=== PATIENT | female | born 1940 | race Caucasian/White ===

== ENCOUNTER 2016-09-14 13:14 | Inpatient (IN) | payer MEDICARE, OTHER ==
[~2016-09-14] VITALS: Ht 142.2 cm; Wt 56.7 kg
[~2016-09-14 13:14] MED LIST: ACET500C5 PO; CAPT100T2 PO; FOLI-49 PO; IBUP-1542 PO; LEVO75TA5 PO; MECL25TA2 PO; METH2.5T33 PO; PRED20TA PO; TRAM50TA2 PO
[2016-09-14] MEDS ORDERED: SOD CHLORIDE 0.9% 1,000 ML IV STA (17:25)
[2016-09-14] MEDS ORDERED: ONDANSETRON 4 MG INJ IV STA (17:25)
[2016-09-14] MEDS ORDERED: DIAZEPAM 5 MG/ML SYG IV ONE (17:30)
[2016-09-14] MEDS ORDERED: MECLIZINE 12.5 MG TAB PO ONE (17:30)
--- NOTE | 2016-09-14 17:32 | ERA ---
ER Documentation Chief Complaint Date/Time DATE: 09/14/16 TIME: 17:28 Chief Complaint DIZZINESS WITH SYNCOPAL EPISODE HPI Patient is a 75-year-old female who reports dizziness for the last 2 weeks but worsening over the last 24 hours. On the chief complaint and states that she had a syncopal episode but she and her daughter deny this. She does state that her dizziness was so severe that she was crawling around on the ground last night. She did not pass out however. She states that the dizziness is a spinning sensation and that she has had this multiple times in the past. She does have a headache with a bitemporal throbbing sensation. She denies any focal weakness or paresthesias. She has not had any head trauma, chest pain, shortness of breath, fever,, coughing, sore throat, otalgia, tinnitus, abdominal pain, nausea, vomiting, diarrhea, dysuria, hematuria. Attempting to ambulate and stand increases the dizziness. Lying down helps. This is similar to prior episodes. The daughter mentions that she has had significant weight loss unintentionally over the last 8 months. She has been seeing a neurologist as well but this is been more for her forgetfulness. When asked about the weight loss she has been forgetting to eat. Remainder of the systems are negative. ROS All systems reviewed and are negative except as per history of present illness. Medications Home Meds Reported Medications Captopril* (Captopril*) 100 Mg Tablet, 100 MG PO BID, TAB 03/22/15 Methotrexate Sodium (Methotrexate) 2.5 Mg Tablet, MG PO DAILY (20MG)-8 TABS PER WEEK 03/19/12 Levothyroxine Sodium* (Levothyroxine Sodium*) 75 Mcg Tablet, 75 MCG PO DAILY 03/19/12 Folic Acid* (Folic Acid*) 1 Mg Tablet, 1 MG PO DAILY 03/19/12 Discontinued Scripts Tramadol HCl (Tramadol HCl) 50 Mg Tablet, 50 MG PO Q4 Y for PAIN, #20 TAB Prov:TOÑO KASPER MD 03/29/16 Acetaminophen* (Tylophen*) 500 Mg Capsule, 1 CAP PO Q6H Y for PAIN AND OR ELEVATED TEMP, #20 CAP Prov:TOÑO KASPER MD 03/29/16 Tramadol HCl (Tramadol HCl) 50 Mg Tablet, 50 MG PO Q4 Y for PAIN, #20 TAB Prov:TOÑO KASPER MD 01/28/16 Prednisone* (Prednisone*) 20 Mg Tab, 20 MG PO DAILY for 5 Days, TAB Prov:TOÑO KASPER MD 01/28/16 Meclizine Hcl* (Antivert*) 25 Mg Tablet, 25 MG PO Q6H Y for DIZZINESS, #20 TAB Prov:YOANA MARAVILLA DO 01/14/16 Ibuprofen* (Ibuprofen*) 600 Mg Tablet, 600 MG PO Q6 Y for PAIN, #30 TAB Prov:KAITLYNN NIETO PA-C 01/31/15 Allergies Allergies: Coded Allergies: No Known Allergy (Unverified , 09/14/16) PMhx/Soc History of Surgery: Yes () Anesthesia Reaction: No Hx Neurological Disorder: No Hx Respiratory Disorders: No Hx Cardiac Disorders: Yes (HTN) Hx Psychiatric Problems: No Hx Miscellaneous Medical Probl: Yes (ARTHRITIS) Hx Alcohol Use: No Hx Substance Use: No Hx Tobacco Use: No FmHx Family History: No coronary disease, No diabetes Physical Exam Vitals Vital Signs Date Time Temp Pulse Resp B/P Pulse Ox O2 Delivery O2 Flow Rate FiO2 09/14/16 19:11 99.0 71 17 122/69 100 Room Air 09/14/16 18:11 74 17 123/75 100 Room Air 132/79 128/64 09/14/16 18:07 Nasal Cannula 2 09/14/16 13:16 99.1 81 18 176/75 99 Physical Exam Const: [] Well-developed well-nourished female lying on the bed no acute distress Head: Atraumatic normocephalic Eyes: Normal Conjunctiva, pupils equally round and reactive to light, extraocular motions are intact ENT: Normal External Ears, Nose and Mouth., TMs are clear bilaterally Neck: Full range of motion..~ No meningismus. Resp: Clear to auscultation bilaterally Cardio: Regular rate and rhythm, no murmurs Abd: Soft, non tender, non distended. Normal bowel sounds, no masses, rebound , or guarding Skin: No petechiae or rashes Back: No midline or flank tenderness Ext: No cyanosis, or edema Neur: Awake and alert, GCS of 15, cranial nerves II through XII are intact, strength is 4 out of 5 in both upper and lower extremities, sensation is intact and equal on both sides, finger to nose is intact and equal on both sides, patient is grossly nonfocal Psych: Normal Mood and Affect Result Diagram: 09/14/16173809/14/16 1739 Results 24 hrs Laboratory Tests Test 09/14/16 17:39 09/14/16 18:46 Activated Partial Thromboplast Time 28.0Sec Alanine Aminotransferase (ALT/SGPT) 21IU/L Albumin 3.8g/dl Albumin/Globulin Ratio 1.05 Alkaline Phosphatase 132IU/L Anion Gap 16 Aspartate Amino Transf (AST/SGOT) 35IU/L Basophils # 0.110^3/ul Basophils % 0.8% Blood Urea Nitrogen 12mg/dl Calcium Level 9.2mg/dl Carbon Dioxide Level 31mmol/L Chloride Level 102mmol/L Creatinine 0.62mg/dl Direct Bilirubin 0.00mg/dl Eosinophils # 0.410^3/ul Eosinophils % 5.6% Globulin 3.60g/dl Glucose Level 106mg/dl Hematocrit 37.0% Hemoglobin 12.2g/dl INR International Normalized Ratio 1.00 Indirect Bilirubin 0.2mg/dl Lymphocytes # 1.910^3/ul Lymphocytes % 29.2% Mean Corpuscular Hemoglobin 29.6pg Mean Corpuscular Hemoglobin Concent 33.0g/dl Mean Corpuscular Volume 89.8fl Mean Platelet Volume 10.8fl Monocytes # 0.510^3/ul Monocytes % 8.0% Neutrophils # 3.810^3/ul Neutrophils % 56.2% Nucleated Red Blood Cells # 0.010^3/ul Nucleated Red Blood Cells % 0.0/100WBC Platelet Count 64459^3/UL Potassium Level 3.8mmol/L Prothrombin Time 13.2Sec Prothrombin Time Ratio 1.0 Red Blood Count 4.1210^6/ul Red Cell Distribution Width 13.4% Sodium Level 145mmol/L Total Bilirubin 0.2mg/dl Total Protein 7.4g/dl Troponin I < 0.012ng/ml White Blood Count 6.710^3/ul Urine Bacteria FEW Urine Bilirubin NEGATIVE Urine Clarity CLEAR Urine Color LT. YELLOW Urine Glucose NEGATIVE% Urine Hemoglobin 2+ Urine Ketones NEGATIVE Urine Leukocyte Esterase TRACE Urine Microscopic RBC 10-25/HPF Urine Microscopic WBC 5-10/HPF Urine Nitrite NEGATIVE Urine Specific [place] 1.015 Urine Squamous Epithelial Cells MODERATE Urine Total Protein NEGATIVE Urine Urobilinogen 0.2 E.U./dL Urine pH 5.5 Current Medications Medications (Trade) Dose Ordered Sig/Abby Route PRN Reason Start Time Stop Time Status Last Admin Dose Admin Sodium Chloride (NS) 1,000 ml @ 1,000 mls/hr Q1H STAT IV 09/14/16 17:25 09/14/16 18:24 DC 09/14/16 17:52 Ondansetron HCl (Zofran Inj) 4 mg ONCE STAT IV 09/14/16 17:25 09/14/16 17:29 DC 09/14/16 17:52 Meclizine HCl (Antivert) 25 mg ONCE ONCE PO 09/14/16 17:30 09/14/16 17:31 DC 09/14/16 17:52 Diazepam 2.5 mg 2.5 mg ONCE ONCE IV 09/14/16 17:30 09/14/16 17:31 DC 09/14/16 17:52 Ceftriaxone Sodium (Rocephin) 50 ml @ 100 mls/hr ONCE ONCE IVPB 09/14/16 20:00 09/14/16 20:29 DC 09/14/16 19:54 Procedures/MDM Differential includes but is not limited to vertigo, dizziness of unclear etiology, orthostatic hypotension, dehydration, electrolyte disturbance, anemia EKG: Rate/Rhythm: Normal Sinus Rhythm at 80 bpm with no evidence of acute ischemia noted, no old EKG available for comparison QRS, ST, T-waves: No changes consistent w/ acute ischemia Impression: No evidence of ischemia or arrhythmia Chest x-ray does not reveal any acute cardiopulmonary process CT the head does not reveal any acute intracranial abnormality Patient does not tilt on her orthostatics Patient's urine is consistent with a very minor urinary tract infection. Asked the nursing staff to get her up and see if she can ambulate. Unfortunately the patient had great difficulty even standing up out of the bed. She could ambulate only with significant assistance. According to the daughter this is not her baseline. It appears she will need to be admitted to the hospital at this time for her inability to walk. Departure Diagnosis: Primary Impression: Vertigo Additional Impressions: Difficulty in walking Urinary tract infection Dementia Condition: Good SANA OLSON Sep 14, 2016 17:32 SANA OLSON 19, 2017 17:32
[2016-09-14 17:48] LABS: ADD SCAN DIFF NO
[2016-09-14 17:54] LABS: BASOPHIL # 0.1 10^3/ul (0.0-0.1); BASOPHILS % 0.8 % (0.0-2.0); EOSINOPHILS # 0.4 10^3/ul (0.0-0.5); EOSINOPHILS % 5.6 % (0.0-7.0); HEMOGLOBIN 12.2 g/dl (12.0-16.0); LYMPHOCYTES # 1.9 10^3/ul (0.8-2.9); LYMPHOCYTES % 29.2 % (15.0-51.0); MEAN CORPUSCULAR HEMOGLOBIN 29.6 pg (29.0-33.0); MEAN CORPUSCULAR VOLUME 89.8 fl (82.0-101.0); MEAN PLATELET VOLUME 10.8 fl (7.4-10.4); MONOCYTE # 0.5 10^3/ul (0.3-0.9); NEUTROPHIL # 3.8 10^3/ul (1.6-7.5); NEUTROPHILS % 56.2 % (39.0-77.0); PLATELET COUNT 237 10^3/UL (140-415); RED BLOOD COUNT 4.12 10^6/ul (4.20-5.40); RED CELL DISTRIBUTION WIDTH 13.4 % (11.5-14.5); WHITE BLOOD COUNT 6.7 10^3/ul (4.8-10.8)
[2016-09-14 18:09] LABS: ALBUMIN 3.8 g/dl (3.3-4.9); PROTIME 13.2 Sec (12.2-14.2)
[2016-09-14 18:10] LABS: CHLORIDE 102 mmol/L (97-110); POTASSIUM 3.8 mmol/L (3.5-5.1); SODIUM 145 mmol/L (135-144)
[2016-09-14 18:12] LABS: ALBUMIN/GLOBULIN RATIO 1.05; ANION GAP 16 (8-16); ASPARTATE AMINO TRANSFERASE 35 IU/L (15-46); BILIRUBIN,INDIRECT 0.2 mg/dl (0-1.1); BILIRUBIN,TOTAL 0.2 mg/dl (0.2-1.3); BLOOD UREA NITROGEN 12 mg/dl (7-20); CARBON DIOXIDE 31 mmol/L (21-31); CREATININE 0.62 mg/dl (0.44-1.00); TOTAL PROTEIN 7.4 g/dl (6.1-8.1)
[2016-09-14 18:13] LABS: ALANINE AMINOTRANSFERASE 21 IU/L (13-69); ALKALINE PHOSPHATASE 132 IU/L (42-121); CALCIUM 9.2 mg/dl (8.4-10.2); GLUCOSE 106 mg/dl (70-220)
--- NOTE | 2016-09-14 18:23 | RADRPT ---
PROCEDURE: XR Chest. CLINICAL INDICATION: Chest pain. TECHNIQUE: Portable AP upright view of the chest was obtained. COMPARISON: 03/19/2012 FINDINGS: The cardiomediastinal silhouette is within normal limits and unchanged, pericardial fat adjacent to the left apex is again noted. The lungs are clear. There is no evidence for pleural effusion, pneu mothorax or pulmonary vascular congestion. The osseous structures are intact with no evidence for a cute abnormality. RPTAT:HJJR IMPRESSION: No evidence for acute intrathoracic pathology or change from 03/19/2012. Physician Mike Date Time Electronically viewed and signed by Physician Mike on 09/14/2016 18:22 JR/
[2016-09-14 18:29] LABS: TROPONIN-I < 0.012 ng/ml (0.00-0.12)
--- NOTE | 2016-09-14 18:30 | RADRPT ---
PROCEDURE: CT Brain without contrast. CLINICAL INDICATION: dizzy TECHNIQUE: A CT of the brain was performed on a [employer] 64-slice CT scanner utilizing axial imaging from the skull base through the vertex without IV contrast. Multiplanar reformatted images were made. Images were reviewed on a PACS workstation. The CTDIvol is 44.7 mGy and the DLP is 720 mGycm. COMPARISON: January 14, 2016 FINDINGS: There is no intracranial hemorrhage, mass effect, or midline shift. No extra-axial fluid collection is seen. There is cerebral volume loss with prominence of the cerebral sulci and lateral ventricles . Mild periventricular white matter hypodensities are nonspecific but likely reflect chronic microva scular ischemic change. Roa-white matter differentiation is preserved. The visualized paranasal si nuses and osseous structures are grossly unremarkable. IMPRESSION: 1. No evidence of acute intracranial pathology. 2. Stable mild cerebral volume loss. 3. Mild periventricular white matter hypodensities are nonspecific but likely reflect chronic micro vascular ischemic change. Physician Mena Date Time Electronically viewed and signed by Physician Mena on 09/14/2016 18:30 ML/
[2016-09-14 19:01] LABS: ADD UMIC YES; URINE BILIRUBIN (Dip) NEGATIVE (NEGATIVE); URINE BLOOD (Dip) 2+ (NEGATIVE); URINE COLOR LT. YELLOW (YELLOW); URINE GLUCOSE (Dip) NEGATIVE (NEGATIVE); URINE KETONES (Dip) NEGATIVE (NEGATIVE); URINE LEUKOCYTE ESTERASE (Dip) TRACE (NEGATIVE); URINE NITRITE (Dip) NEGATIVE (NEGATIVE); URINE TOTAL PROTEIN (Dip) NEGATIVE (NEGATIVE); URINE UROBILINOGEN (Dip) 0.2 E.U./dL (0.1-1.0)
[2016-09-14 19:20] LABS: BACTERIA,URINE FEW
[2016-09-14 19:21] LABS: SQUAMOUS EPITHELIAL CELL,UR MODERATE
[2016-09-14] MEDS ORDERED: CEFTRIAXONE 1 GM/50 ML (PMX) 50 ML IVPB ONE (20:00)
[2016-09-14] MEDS ORDERED: ONDANSETRON 4 MG INJ IV PRN ×2 (21:00→22:30)
[2016-09-14] MEDS ORDERED: ACETAMINOPHEN 325 MG TAB PO PRN ×2 (21:00→22:30)
[2016-09-14 21:30] VITALS: TEMP 98.9
[2016-09-14 22:00] VITALS: Ht 142.2 cm; Wt 56.7 kg
[2016-09-14] MEDS ORDERED: morphine 2 MG INJ IV PRN (22:30)
[2016-09-14] MEDS ORDERED: NA PHOSPHATE/BIPHOS 133 ML ENEMA PR PRN (22:30)
[2016-09-14] MEDS ORDERED: MAGNESIUM HYDROXIDE 30ML CUP PO PRN (22:30)
[2016-09-14] MEDS ORDERED: NITROGLYCERIN (SL) 0.4 MG TAB SL PRN (22:30)
[2016-09-14] MEDS ORDERED: hydrALAzine 20 MG INJ IV PRN (22:30)
[2016-09-14] MEDS ORDERED: ALBUTEROL/IPRATROPIUM (NEB) 3 ML AMP HHN PRN (22:30)
[2016-09-14] MEDS ORDERED: LORAZEPAM 2 MG INJ IV PRN (22:30)
[2016-09-14] MEDS ORDERED: NACL 0.9% 3 ML SYG IV SCH (22:30)
[2016-09-14] MEDS ORDERED: DOCUSATE SODIUM 100 MG CAP PO PRN (22:30)
[2016-09-14 23:00] VITALS: BP 121/54; RESP 16
[2016-09-14] MEDS: SOD CHLORIDE 0.45% 1,000 ML IV SCH (23:10)
[2016-09-14] MEDS: HYDROCODONE/APAP (5/325) TAB PO PRN (23:13)
[2016-09-14 23:54] LABS: CREATINE KINASE 73 IU/L (23-200)
[2016-09-15 00:04] LABS: CK-MB 1.05 ng/ml (0.0-2.4)
[2016-09-15 00:10] LABS: TROPONIN-I < 0.012 ng/ml (0.00-0.12)
--- NOTE | 2016-09-15 04:33 | HP ---
DATE OF ADMISSION: 09/14/2016 The patient was seen and examined by me on 09/14/2016 at 10:10 p.m. CHIEF COMPLAINT: Headache and dizziness. HISTORY OF PRESENT ILLNESS: This is a 75-year-old female with past medical history of vertigo, ques tionable Alzheimer disease, arthritis, and hypothyroidism who has been having dizziness symptoms goi ng on for the last few days and worsening over the last 24 hours. Per records, apparently her dizzi ness was so severe that she was crawling around on the ground last night but no loss of consciousnes s. She has had a spinning sensation of vertigo in the past and has taken meclizine in the past, but apparently she also was having headache, bitemporal throbbing sensation this time, and her symptoms were worse than before. No chest pain or shortness of breath. No sore throat or coughing. No abd ominal pain, nausea, or vomiting. No dysuria. No upper or lower GI bleeding. No hematuria. The p atient's dizziness gets worse when she stands and gets improved when she lies down. She also parado xically states that she has been having about 25 to 30 pound weight loss over the last 8 months with some mild night sweats. This has been unintentional as well. She has seen a neurologist at least over a year ago, and was initially prescribed some medicines for Alzheimer disease over a year ago b ut has not been taking them, per family. PAST MEDICAL HISTORY: As stated above. ALLERGIES: NO KNOWN DRUG ALLERGIES. MEDICATIONS: 1. Methotrexate 2.5 mg daily. 2. Captopril 100 mg b.i.d. 3. Levothyroxine 75 mg daily. 4. Folic acid 1 mg daily. PAST SURGICAL HISTORY: She has had a in the past. SOCIAL HISTORY: Negative for smoking, drinking, or IV drug abuse. FAMILY HISTORY: Noncontributory. PHYSICAL EXAMINATION: VITAL SIGNS: Today, T-max 99.1, pulse 71 to 81, respirations 18, blood pressure is 176 to 122 systo lic over 75 to 69 diastolic, saturating at 100% on room air. GENERAL: The patient is lying in bed. Daughter is at bedside. Answering questions appropriately. No acute distress. HEENT: Pupils equal, round, react to light. Extraocular muscles intact. NECK: Supple, no thyromegaly. LUNGS: Clear to auscultation bilaterally. CARDIOVASCULAR: S1, S2 heard. No rubs or gallops. ABDOMEN: Soft, nontender, nondistended. Normal bowel sounds. No rebound or guarding. MUSCULOSKELETAL: No lower extremity edema bilaterally. NEUROLOGIC: She has about 4/5 strength both bilateral upper and bilateral lower extremities, but se nsation is intact bilaterally in upper and lower extremities. Gait was not assessed. LABORATORIES: CBC is normal. Comprehensive metabolic panel is essentially normal. Sodium is 145. Troponin is negative x1. Coags are normal. The UA shows trace leukocyte esterase positive. The p atient had a head CT that shows no evidence of any acute intracranial pathology. There is stable mi ld cerebral volume loss. Mild periventricular white matter hypodensities are nonspecific and likely reflect chronic microvascular ischemic changes. A chest x-ray shows no evidence of any acute intra thoracic pathology. ASSESSMENT AND PLAN: A 75-year-old female coming in with headache and dizziness symptoms, possible signs of worsening vertigo, with mild urinary tract infection. 1. Dizziness symptoms. We will admit the patient and consider starting meclizine. Check TSH, A1c, lipid panel, and put her on IV fluids as well. Consider neurology consult. Do neuro checks as wel l. Echocardiogram has been ordered as well. Consider MRI of the brain. We will speak to neurology team first. 2. History of arthritis. Continue to monitor for now. She is on p.r.n. pain medicines. 3. History of hypothyroidism. Continue Synthroid. Monitor TSH levels. 4. Weight loss. Again, unclear source. We will order for tumor markers CA 19-9, CA-125, CEA, and alpha fetoprotein to rule out any possible malignancy. 5. Gastrointestinal prophylaxis. We will put her on PPI. 6. Deep venous thrombosis prophylaxis. She will be on SCDs. Dictated By: JAYNE DE SANTIAGO Conf#: [id number] DID#: [id number]
[2016-09-15] MEDS ORDERED: PANTOPRAZOLE 40 MG INJ IV SCH (06:00)
[2016-09-15] MEDS: HYDROCODONE/APAP (5/325) TAB PO PRN (06:18)
[2016-09-15 06:22] VITALS: BP 135/62; PULSE 63
[2016-09-15 06:31] LABS: ADD SCAN DIFF NO
[2016-09-15 06:47] LABS: POTASSIUM 3.6 mmol/L (3.5-5.1)
[2016-09-15 06:49] LABS: CREATINE KINASE 105 IU/L (23-200)
[2016-09-15 06:50] LABS: CREATININE 0.6 mg/dl (0.44-1.00)
[2016-09-15 06:51] LABS: CALCIUM 8.3 mg/dl (8.4-10.2); CHOL/HDL RATIO 2.6 RATIO; PHOSPHORUS 3.7 mg/dl (2.5-4.9)
[2016-09-15 06:52] LABS: BASOPHIL # 0.1 10^3/ul (0.0-0.1); EOSINOPHILS # 0.5 10^3/ul (0.0-0.5); EOSINOPHILS % 9.9 % (0.0-7.0); HEMATOCRIT 35.7 % (37.0-47.0); HEMOGLOBIN 11.4 g/dl (12.0-16.0); LYMPHOCYTES # 1.7 10^3/ul (0.8-2.9); LYMPHOCYTES % 32.1 % (15.0-51.0); MEAN CORPUSCULAR HEMOGLOBIN 29.2 pg (29.0-33.0); MEAN CORPUSCULAR HGB CONC 31.9 g/dl (32.0-37.0); MEAN CORPUSCULAR VOLUME 91.3 fl (82.0-101.0); MEAN PLATELET VOLUME 11.4 fl (7.4-10.4); MONOCYTE # 0.4 10^3/ul (0.3-0.9); MONOCYTES % 7.4 % (0.0-11.0); NEUTROPHIL # 2.6 10^3/ul (1.6-7.5); NEUTROPHILS % 49.4 % (39.0-77.0); PLATELET COUNT 210 10^3/UL (140-415); RED BLOOD COUNT 3.91 10^6/ul (4.20-5.40); RED CELL DISTRIBUTION WIDTH 13.6 % (11.5-14.5); WHITE BLOOD COUNT 5.2 10^3/ul (4.8-10.8)
[2016-09-15 06:57] LABS: CK-MB 1.57 ng/ml (0.0-2.4)
[2016-09-15 07:15] LABS: TROPONIN-I < 0.012 ng/ml (0.00-0.12)
[2016-09-15 07:23] LABS: CANCER ANTIGEN 125 10.5 U/ml (0.0-35.0); CARCINOEMBRYONIC ANTIGEN 2.4 ng/ml (0.0-5.0)
[2016-09-15] MEDS ORDERED: LEVOTHYROXINE 75 MCG TAB PO SCH (07:30)
[2016-09-15 07:56] VITALS: BP 123/58; RESP 20
[2016-09-15] MEDS: FOLIC ACID 1 MG TAB PO SCH (09:00)
[2016-09-15 10:47] LABS: THYROID STIMULATING HORMONE 10.5 MIU/L (0.465-4.680)
[2016-09-15] MEDS: MECLIZINE 25 MG TAB PO SCH ×2 (13:00→20:47)
--- NOTE | 2016-09-15 13:11 | CONS ---
Date/Time of Note Date/Time of Note DATE: 09/15/16 TIME: 13:07 Assessment/Plan Assessment/Plan Chief Complaint/Hosp Course 75 year old female with history of vertigo presenting with headaches and worsening symptoms. -Meclizine 25 mg TID standing ordered, IVF -MRI Brain w/o contrast to r/o posterior fossa infarct -PT evaluation -will continue to follow Problems: Consultation Date/Type/Reason Admit Date/Time Sep 14, 2016 at 21:00 Date of Consultation: Sep 15, 2016 Type of Consultation: Neurology Reason for Consultation vertigo Referring Provider: JAYNE KERN Hx of Present Illness 75 year old female with history of vertigo, dementia, arthritis presenting with worsening dizziness for the past few days and difficulty ambulating due to severe vertigo. In the past she has taken meclizine, which alleviated her symptoms, no history of any strokes. She complains of blurred vision due to vertigo, no loss of vision, no speech disturbances or focal weakness. She also admits to up to 30 pounds unintentional weight loss, undergoing further work up. vertigo Social History Smoking Status: Never smoker Exam/Review of Systems Vital Signs Vitals Vital Signs Date Time Temp Pulse Resp B/P Pulse Ox O2 Delivery O2 Flow Rate FiO2 09/15/16 07:56 98.9 65 20 123/58 93 09/14/16 21:30 Room Air 09/14/16 18:07 2 Intake and Output 09/14/16 09/14/16 09/15/16 15:00 23:00 07:00 Intake Total 450 ml Output Total 1 ml Balance 449 ml Exam awake alert appears stated age oriented to self hospital bulgarian speaking no aphasia follows commands CN: JB, no nystagmus, blinks to threat no facial asymmetry palate upgoing uvula midline scm/trap intact tongue midline Motor: no drift in arms or legs strength is full throughout although she gives poor effrt Coordination no ataxia Reflexes symmetric throughout gait unable to test Results Result Diagram: 09/15/16 0540 09/15/16 0540 Results 24 hrs Laboratory Tests Test 09/14/16 17:39 09/14/16 18:46 09/14/16 23:24 09/15/16 05:40 Activated Partial Thromboplast Time 28.0 Alanine Aminotransferase (ALT/SGPT) 21 Albumin 3.8 Albumin/Globulin Ratio 1.05 Alkaline Phosphatase 132 H Anion Gap 16 13 Aspartate Amino Transf (AST/SGOT) 35 Basophils # 0.1 0.1 Basophils % 0.8 1.0 Blood Urea Nitrogen 12 10 Calcium Level 9.2 8.3 L Carbon Dioxide Level 31 28 Chloride Level 102 105 Creatinine 0.62 0.60 Direct Bilirubin 0.00 Eosinophils # 0.4 0.5 Eosinophils % 5.6 9.9 H Globulin 3.60 H Glucose Level 106 78 Hematocrit 37.0 35.7 L Hemoglobin 12.2 11.4 L INR International Normalized Ratio 1.00 Indirect Bilirubin 0.2 Lymphocytes # 1.9 1.7 Lymphocytes % 29.2 32.1 Mean Corpuscular Hemoglobin 29.6 29.2 Mean Corpuscular Hemoglobin Concent 33.0 31.9 L Mean Corpuscular Volume 89.8 91.3 Mean Platelet Volume 10.8 H 11.4 H Monocytes # 0.5 0.4 Monocytes % 8.0 7.4 Neutrophils # 3.8 2.6 Neutrophils % 56.2 49.4 Nucleated Red Blood Cells # 0.0 0.0 Nucleated Red Blood Cells % 0.0 0.0 Platelet Count 237 210 Potassium Level 3.8 3.6 Prothrombin Time 13.2 Prothrombin Time Ratio 1.0 Red Blood Count 4.12 L 3.91 L Red Cell Distribution Width 13.4 13.6 Sodium Level 145 H 142 Total Bilirubin 0.2 Total Protein 7.4 Troponin I < 0.012 < 0.012 < 0.012 White Blood Count 6.7 # 5.2 # Urine Bacteria FEW Urine Bilirubin NEGATIVE Urine Clarity CLEAR Urine Color LT. YELLOW Urine Glucose NEGATIVE Urine Hemoglobin 2+ H Urine Ketones NEGATIVE Urine Leukocyte Esterase TRACE H Urine Microscopic RBC 10-25 Urine Microscopic WBC 5-10 Urine Nitrite NEGATIVE Urine Specific [place] 1.015 Urine Squamous Epithelial Cells MODERATE Urine Total Protein NEGATIVE Urine Urobilinogen 0.2 E.U./dL Urine pH 5.5 Creatine Kinase 73 105 Creatine Kinase Index 1.4 1.5 Creatinine Kinase MB (Mass) 1.05 1.57 Free Thyroxine 1.10 Alpha Fetoprotein 3.11 CA 125 Antigen 10.5 CA 19-9 Antigen 11.0 Carcinoembryonic Antigen 2.4 Cholesterol Level 141 Cholesterol/HDL Ratio 2.6 HDL Cholesterol 53 Hemoglobin A1c 5.2 LDL Cholesterol, Calculated 68 Magnesium Level 2.0 Phosphorus Level 3.7 Thyroid Stimulating Hormone (TSH) 10.500 H Triglycerides Level 99 Medications Medications Current Medications Ondansetron HCl (Zofran Inj) 4 mg Q6H PRN IV NAUSEA AND/OR VOMITING; Start at 22:30 Acetaminophen (Tylenol Tab) 650 mg Q6H PRN PO PAIN LEVEL 1-3 OR FEVER; Start at 22:30 Acetaminophen/ Hydrocodone Bitart ([place] (5/325)) 1 tab Q6H PRN PO MODERATE PAIN LEVEL 4-6 Last administered on 09/15/16 06:18; Admin Dose 1 TAB; Start at 22:30 Morphine Sulfate (morphine) 2 mg Q4H PRN IV SEVERE PAIN LEVEL 7-10; Start 09/14 at 22:30 Docusate Sodium (Colace) 100 mg Q12H PRN PO CONSTIPATION; Start 09/14/16 at 22: 30 Magnesium Hydroxide (Milk Of Mag) 30 ml DAILY PRN PO CONSTIPATION; Start at 22:30 Sodium Biphosphate/ Sodium Phosphate 133 ml 133 ml DAILY PRN [place] CONSTIPATION; Start 09/14/16 at 22:30 Sodium Chloride (1/2 NS) 1,000 ml @ 75 mls/hr [id number] IV Last administered on 09/14/16 23:10; Admin Dose 75 MLS/HR; Start 09/14/16 at 22:09 Lorazepam (Ativan) 0.5 mg Q6H PRN IV ANXIETY; Start 09/14/16 at 22:30 Hydralazine HCl (Apresoline) 10 mg Q6H PRN IV ELEVATED BLOOD PRESSURE; Start at 22:30 Clonidine (Catapres) 0.1 mg Q6H PRN PO ELEVATED BLOOD PRESSURE; Start 09/14/16 at 22:30 Nitroglycerin (Nitroglycerin (Sl Tab) 0.4 Mg) 1 tab Q5M PRN SL ANGINA; Start at 22:30 Folic Acid (Folic Acid) 1 mg DAILY PO ; Start 09/15/16 at 09:00 Pantoprazole (Protonix Iv) 40 mg DAILY@06 IV Last administered on 09/15/16 06: 12; Admin Dose 40 MG; Start 09/15/16 at 06:00 Meclizine HCl (Antivert) 25 mg TID PO ; Start 09/15/16 at 13:00 LOUIE MARROQUIN MD Sep 15, 2016 13:11
[2016-09-15] MEDS: SOD CHLORIDE 0.45% 1,000 ML IV SCH (14:18)
--- NOTE | 2016-09-15 14:19 | PN ---
Date/Time of Note Date/Time of Note DATE: 09/15/16 TIME: 14:13 Assessment/Plan VTE Prophylaxis VTE Prophylaxis Intervention: heparin Lines/Catheters IV Catheter Type (from Nrs): Saline Lock Urinary Cath still in place: No Assessment/Plan Assessment/Plan 1. Vertigo, acute on chronic, meclizine 2. UTI, on rocephin 3. Hypothyroidism with TSH 10, increase synthroid DVT prophylaxis: heparin Subjective 24 Hr Interval Summary Free Text/Dictation less vertigo but still dizzy on standing or sitting Exam/Review of Systems Vital Signs Vitals Vital Signs Date Time Temp Pulse Resp B/P Pulse Ox O2 Delivery O2 Flow Rate FiO2 09/15/16 07:56 98.9 65 20 123/58 93 09/14/16 21:30 Room Air 09/14/16 18:07 2 Intake and Output 09/14/16 09/14/16 09/15/16 15:00 23:00 07:00 Intake Total 450 ml Output Total 1 ml Balance 449 ml Exam Constitutional: alert, oriented, well developed Psych: nl mood/affect, no complaints Head: atraumatic, normocephalic Eyes: EOMI, PERRL, nl conjunctiva, nl lids ENMT: nl external ears & nose, nl lips & teeth, nl nasal mucosa & septum Neck: non-tender, supple Respiratory: clear to auscultation, normal air movement, No congested cough, No crackles/rales, No diminished breath sounds, No intercostal retraction, No labored breathing, No other, No respirations, No tactile fremitus, No wheezing Cardiovascular: nl pulses, regular rate and rhythm, No S3, No S4, No bruits, No diastolic murmur, No edema, No gallop, No irregular rhythm, No jugular venous distention (JVD), No murmurs/extra sounds, No other, No rub, No systolic murmur Gastrointestinal: nl liver, spleen, non-tender, soft, No ascites, No bowel sounds, No distended, No firm, No hepatomegaly, No mass , No other, No rebound or guarding, No splenomegaly, No surgical scars, No tender Musculoskeletal: nl extremities to inspection Extremities: normal pulses, No calf tenderness, No clubbing, No cyanosis, No edema, No other, No palpable cord, No pitting pedal edema, No tenderness Neurological: CONFERENCE ASSISTANT II-XII intact, nl mental status, nl speech, nl strength Skin: nl turgor Lymph: nl lymph nodes Results Result Diagram: 09/15/16 0540 09/15/16 0540 Results 24 hrs Laboratory Tests Test 09/14/16 17:39 09/14/16 18:46 09/14/16 23:24 09/15/16 05:40 Activated Partial Thromboplast Time 28.0 Alanine Aminotransferase (ALT/SGPT) 21 Albumin 3.8 Albumin/Globulin Ratio 1.05 Alkaline Phosphatase 132 H Anion Gap 16 13 Aspartate Amino Transf (AST/SGOT) 35 Basophils # 0.1 0.1 Basophils % 0.8 1.0 Blood Urea Nitrogen 12 10 Calcium Level 9.2 8.3 L Carbon Dioxide Level 31 28 Chloride Level 102 105 Creatinine 0.62 0.60 Direct Bilirubin 0.00 Eosinophils # 0.4 0.5 Eosinophils % 5.6 9.9 H Globulin 3.60 H Glucose Level 106 78 Hematocrit 37.0 35.7 L Hemoglobin 12.2 11.4 L INR International Normalized Ratio 1.00 Indirect Bilirubin 0.2 Lymphocytes # 1.9 1.7 Lymphocytes % 29.2 32.1 Mean Corpuscular Hemoglobin 29.6 29.2 Mean Corpuscular Hemoglobin Concent 33.0 31.9 L Mean Corpuscular Volume 89.8 91.3 Mean Platelet Volume 10.8 H 11.4 H Monocytes # 0.5 0.4 Monocytes % 8.0 7.4 Neutrophils # 3.8 2.6 Neutrophils % 56.2 49.4 Nucleated Red Blood Cells # 0.0 0.0 Nucleated Red Blood Cells % 0.0 0.0 Platelet Count 237 210 Potassium Level 3.8 3.6 Prothrombin Time 13.2 Prothrombin Time Ratio 1.0 Red Blood Count 4.12 L 3.91 L Red Cell Distribution Width 13.4 13.6 Sodium Level 145 H 142 Total Bilirubin 0.2 Total Protein 7.4 Troponin I < 0.012 < 0.012 < 0.012 White Blood Count 6.7 # 5.2 # Urine Bacteria FEW Urine Bilirubin NEGATIVE Urine Clarity CLEAR Urine Color LT. YELLOW Urine Glucose NEGATIVE Urine Hemoglobin 2+ H Urine Ketones NEGATIVE Urine Leukocyte Esterase TRACE H Urine Microscopic RBC 10-25 Urine Microscopic WBC 5-10 Urine Nitrite NEGATIVE Urine Specific Welcome 1.015 Urine Squamous Epithelial Cells MODERATE Urine Total Protein NEGATIVE Urine Urobilinogen 0.2 E.U./dL Urine pH 5.5 Creatine Kinase 73 105 Creatine Kinase Index 1.4 1.5 Creatinine Kinase MB (Mass) 1.05 1.57 Free Thyroxine 1.10 Alpha Fetoprotein 3.11 CA 125 Antigen 10.5 CA 19-9 Antigen 11.0 Carcinoembryonic Antigen 2.4 Cholesterol Level 141 Cholesterol/HDL Ratio 2.6 HDL Cholesterol 53 Hemoglobin A1c 5.2 LDL Cholesterol, Calculated 68 Magnesium Level 2.0 Phosphorus Level 3.7 Thyroid Stimulating Hormone (TSH) 10.500 H Triglycerides Level 99 Medications Medications Current Medications Ondansetron HCl (Zofran Inj) 4 mg Q6H PRN IV NAUSEA AND/OR VOMITING; Start at 22:30 Acetaminophen (Tylenol Tab) 650 mg Q6H PRN PO PAIN LEVEL 1-3 OR FEVER; Start at 22:30 Acetaminophen/ Hydrocodone Bitart ([place] (5/325)) 1 tab Q6H PRN PO MODERATE PAIN LEVEL 4-6 Last administered on 09/15/16 06:18; Admin Dose 1 TAB; Start at 22:30 Morphine Sulfate (morphine) 2 mg Q4H PRN IV SEVERE PAIN LEVEL 7-10; Start 09/14 at 22:30 Docusate Sodium (Colace) 100 mg Q12H PRN PO CONSTIPATION; Start 09/14/16 at 22: 30 Magnesium Hydroxide (Milk Of Mag) 30 ml DAILY PRN PO CONSTIPATION; Start at 22:30 Sodium Biphosphate/ Sodium Phosphate 133 ml 133 ml DAILY PRN [place] CONSTIPATION; Start 09/14/16 at 22:30 Sodium Chloride (1/2 NS) 1,000 ml @ 75 mls/hr [id number] IV Last administered on 09/14/16 23:10; Admin Dose 75 MLS/HR; Start 09/14/16 at 22:09 Lorazepam (Ativan) 0.5 mg Q6H PRN IV ANXIETY; Start 09/14/16 at 22:30 Hydralazine HCl (Apresoline) 10 mg Q6H PRN IV ELEVATED BLOOD PRESSURE; Start at 22:30 Clonidine (Catapres) 0.1 mg Q6H PRN PO ELEVATED BLOOD PRESSURE; Start 09/14/16 at 22:30 Nitroglycerin (Nitroglycerin (Sl Tab) 0.4 Mg) 1 tab Q5M PRN SL ANGINA; Start at 22:30 Folic Acid (Folic Acid) 1 mg DAILY PO ; Start 09/15/16 at 09:00 Pantoprazole (Protonix Iv) 40 mg DAILY@06 IV Last administered on 09/15/16t 06: 12; Admin Dose 40 MG; Start 09/15/16 at 06:00 Meclizine HCl (Antivert) 25 mg TID PO ; Start 09/15/16 at 13:00 AARON ALY MD Sep 15, 2016 14:19
--- NOTE | 2016-09-15 18:20 | RADRPT ---
Echocardiogram Report Patient Name: ДМИТРИЙ BELTRÁN Gender: Female Date: 1940 Study Date: 15-Sep-2016 Plant Supervisor: Concha Godfrey [facility] Location: 2249 Ref. Physician: JAYNE KERN Quality: Good Procedures: Transthoracic echocardiogram with complete 2D, M-Mode, and doppler examination. Indications: Chest Pain. 2D/M Mode Doppler Measurement Value Normal Ranges Measurement Value Normal Ranges LVIDd 2D 3.8 3.5 - 5.6 cm AV Peak Amanuel 1.4 m/sec LVIDs 2D 2.2 2.1 - 4.1 cm AV Peak PG 8.0 mmHg FS 2D 42.4 % LVOT Peak Amanuel 1.1 m/sec LVPWd 2D 0.8 0.6 - 1.1 cm LVOT Peak PG 5.0 mmHg IVSd 2D 0.9 0.6 - 1.1 cm MV E Peak Amanuel 0.8 m/sec IVS/LVPW 2D 1.1 MV A Peak Amanuel 0.9 m/sec AoR Diam 2D 2.4 2.0 - 3.7 cm MV E/A 0.8 LA/Ao 2D 1 0 - 1 MV Decel Time 183 msec EDV 2D 55.7 cm3 MV E/A 0.8 ESV 2D 10.6 cm3 TR Peak Amanuel 3.0 m/sec LA Dimen 2D 3.1 2.3 - 4.0 cm TR Peak PG 37.0 mmHg RVSP 40.0 mmHg Findings Left Ventricle: Normal left ventricular systolic function. Normal left ventricular cavity size. Normal left ventricular wall thickness. Ejection fraction is visually estimated at 60 %. Tissue Doppler/Mitral Doppler indices are consistent with impaired relaxation (Stage I diastolic dysfunction). Right Ventricle: Normal right ventricular size. Normal right ventricular systolic function. Left Atrium: The left atrium is normal in size. Right Atrium: The right atrium is normal in size. Mitral Valve: Normal appearance of the mitral valve. Mild mitral annular calcification. Mild mitral valve regurgitation. Aortic Valve: Normal appearance of the aortic valve. No significant aortic stenosis or insufficiency. Tricuspid Valve: Normal appearance of the tricuspid valve. Estimated peak PA systolic pressure 40 mmHg. There is mild tricuspid regurgitation. Pulmonic Valve: Normal pulmonic valve appearance. Pericardium: Normal pericardium with no significant pericardial effusion. Aorta: Normal aortic root. IVC: Normal size and normal respiratory collapse consistent with normal right atrial pressure. Conclusions 1.Normal left ventricular systolic function. Normal left ventricular cavity size. Normal left ventricular wall thickness. Ejection fraction is visually estimated at 60 %. Tissue Doppler/Mitral Doppler indices are consistent with impaired relaxation (Stage I diastolic dysfunction). 2.Normal appearance of the mitral valve. Mild mitral annular calcification. Mild mitral valve regurgitation. 3.Normal appearance of the tricuspid valve. Estimated peak PA systolic pressure 40 mmHg. There is mild tricuspid regurgitation. Electronically Signed By: Mina Landa 15-Sep-2016 18:19:50 -2400 Patient Name: ДМИТРИЙ BELTRÁN Study Date: 15-Sep-2016 [id number]
[2016-09-15] MEDS: HEPARIN 5,000 UNIT/0.5 ML SYG SC SCH (20:53)
[2016-09-15 21:40] VITALS: BP 146/68; RESP 18
[2016-09-15 22:15] VITALS: BP_SYST 126; BP_SYST 130; BP_DIAS 60
[2016-09-16] MEDS: SOD CHLORIDE 0.45% 1,000 ML IV SCH ×3 (00:49→20:35)
[2016-09-16 05:38] LABS: ADD SCAN DIFF NO
[2016-09-16 06:08] LABS: POTASSIUM 3.8 mmol/L (3.5-5.1)
[2016-09-16 06:11] LABS: BASOPHIL # 0.1 10^3/ul (0.0-0.1); BASOPHILS % 0.8 % (0.0-2.0); CREATININE 0.62 mg/dl (0.44-1.00); EOSINOPHILS # 0.6 10^3/ul (0.0-0.5); EOSINOPHILS % 9.2 % (0.0-7.0); HEMATOCRIT 34.5 % (37.0-47.0); HEMOGLOBIN 11.5 g/dl (12.0-16.0); LYMPHOCYTES # 1.7 10^3/ul (0.8-2.9); MEAN CORPUSCULAR HEMOGLOBIN 30.1 pg (29.0-33.0); MEAN CORPUSCULAR HGB CONC 33.3 g/dl (32.0-37.0); MEAN CORPUSCULAR VOLUME 90.3 fl (82.0-101.0); MEAN PLATELET VOLUME 11.3 fl (7.4-10.4); MONOCYTE # 0.5 10^3/ul (0.3-0.9); MONOCYTES % 8.7 % (0.0-11.0); NEUTROPHIL # 3.2 10^3/ul (1.6-7.5); NEUTROPHILS % 53.1 % (39.0-77.0); PLATELET COUNT 214 10^3/UL (140-415); RED BLOOD COUNT 3.82 10^6/ul (4.20-5.40); RED CELL DISTRIBUTION WIDTH 13.3 % (11.5-14.5)
[2016-09-16 06:12] LABS: CALCIUM 8.8 mg/dl (8.4-10.2)
[2016-09-16] MEDS: PANTOPRAZOLE (EC) 40 MG TAB PO SCH (06:19)
[2016-09-16 08:00] VITALS: BP 135/80; PULSE 73; RESP 18
[2016-09-16] MEDS: LEVOTHYROXINE 75 MCG TAB PO SCH (08:37)
[2016-09-16] MEDS: MECLIZINE 25 MG TAB PO SCH ×3 (08:37→20:26)
[2016-09-16] MEDS: FOLIC ACID 1 MG TAB PO SCH (08:37)
[2016-09-16] MEDS: HEPARIN 5,000 UNIT/0.5 ML SYG SC SCH ×2 (09:27→20:28)
--- NOTE | 2016-09-16 12:06 | CONS ---
Date/Time of Note Date/Time of Note DATE: 09/16/16 TIME: 12:05 Consult Date/Type/Reason Admit Date/Time Sep 14, 2016 at 21:00 Initial Consult Date 09/15/16 Type of Consultation: Neurology Ordering Provider: JAYNE KERN Subjective dizziness improving refused MRI last night, agreeable to MRI today with sedatives Objective Vital Signs Date Time Temp Pulse Resp B/P Pulse Ox O2 Delivery O2 Flow Rate FiO2 09/16/16 08:00 98.6 73 18 135/80 93 Room Air 09/14/16 18:07 2 Intake and Output 09/15/16 09/15/16 09/16/16 15:00 23:00 07:00 Intake Total 550 ml 665 ml 975 ml Output Total 850 ml 500 ml Balance 550 ml -185 ml 475 ml Exam awake alert appears stated age oriented to self hospital [place] speaking no aphasia follows commands CN: JB, no nystagmus, blinks to threat no facial asymmetry palate upgoing uvula midline scm/trap intact tongue midline Motor: no drift in arms or legs strength is full throughout although she gives poor effrt Coordination no ataxia Reflexes symmetric throughout gait unable to test Results/Medications Result Diagram: 09/16/16 0440 09/16/16 0440 Results 24 hrs Laboratory Tests Test 09/16/16 04:40 Anion Gap 14 Basophils # 0.1 Basophils % 0.8 Blood Urea Nitrogen 12 Calcium Level 8.8 Carbon Dioxide Level 29 Chloride Level 105 Creatinine 0.62 Eosinophils # 0.6 H Eosinophils % 9.2 H Glucose Level 87 Hematocrit 34.5 L Hemoglobin 11.5 L Lymphocytes # 1.7 Lymphocytes % 28.0 Mean Corpuscular Hemoglobin 30.1 Mean Corpuscular Hemoglobin Concent 33.3 Mean Corpuscular Volume 90.3 Mean Platelet Volume 11.3 H Monocytes # 0.5 Monocytes % 8.7 Neutrophils # 3.2 Neutrophils % 53.1 Nucleated Red Blood Cells # 0.0 Nucleated Red Blood Cells % 0.0 Platelet Count 214 Potassium Level 3.8 Red Blood Count 3.82 L Red Cell Distribution Width 13.3 Sodium Level 144 White Blood Count 6.0 Medications Current Medications Ondansetron HCl (Zofran Inj) 4 mg Q6H PRN IV NAUSEA AND/OR VOMITING; Start at 22:30 Acetaminophen (Tylenol Tab) 650 mg Q6H PRN PO PAIN LEVEL 1-3 OR FEVER; Start at 22:30 Acetaminophen/ Hydrocodone Bitart ([place] (5/325)) 1 tab Q6H PRN PO MODERATE PAIN LEVEL 4-6 Last administered on 09/15/16 06:18; Admin Dose 1 TAB; Start at 22:30 Morphine Sulfate (morphine) 2 mg Q4H PRN IV SEVERE PAIN LEVEL 7-10; Start 09/14 at 22:30 Docusate Sodium (Colace) 100 mg Q12H PRN PO CONSTIPATION; Start 09/14/16 at 22: 30 Magnesium Hydroxide (Milk Of Mag) 30 ml DAILY PRN PO CONSTIPATION; Start at 22:30 Sodium Biphosphate/ Sodium Phosphate 133 ml 133 ml DAILY PRN [place] CONSTIPATION; Start 09/14/16 at 22:30 Sodium Chloride (1/2 NS) 1,000 ml @ 75 mls/hr [id number] IV Last administered on 09/16/16 06:20; Admin Dose 75 MLS/HR; Start 09/14/16 at 22:09 Lorazepam (Ativan) 0.5 mg Q6H PRN IV ANXIETY; Start 09/14/16 at 22:30 Hydralazine HCl (Apresoline) 10 mg Q6H PRN IV ELEVATED BLOOD PRESSURE; Start at 22:30 Clonidine (Catapres) 0.1 mg Q6H PRN PO ELEVATED BLOOD PRESSURE; Start 09/14/16 at 22:30 Nitroglycerin (Nitroglycerin (Sl Tab) 0.4 Mg) 1 tab Q5M PRN SL ANGINA; Start at 22:30 Folic Acid (Folic Acid) 1 mg DAILY PO Last administered on 09/16/16 08:37; Admin Dose 1 MG; Start 09/15/16 at 09:00 Meclizine HCl (Antivert) 25 mg TID PO Last administered on 09/16/16 08:37; Admin Dose 25 MG; Start 09/15/16 at 13:00 Heparin Sodium (Porcine) (Heparin (5000 Units/0.5 ml)) 5,000 unit BID SC Last administered on 09/16/16 09:27; Admin Dose 5,000 UNIT; Start 09/15/16 at 21:00 Pantoprazole (Protonix Tab) 40 mg DAILY@06 PO Last administered on 09/16/16t 06 :19; Admin Dose 40 MG; Start 09/16/16 at 06:00 Assessment/Plan Chief Complaint/Hosp Course 75 year old female with history of vertigo presenting with headaches and worsening symptoms. -Meclizine 25 mg TID standing ordered, IVF -MRI Brain w/o contrast to r/o posterior fossa infarct may use low dose ativan 0.5 mg prn prior to MRI to complete -PT evaluation -will continue to follow Problems: LOUIE MARROQUIN MD Sep 16, 2016 12:06
[2016-09-16] MEDS ORDERED: HYDR-3498 PO (15:06)
[2016-09-16] MEDS ORDERED: SYN75 PO (15:16)
--- NOTE | 2016-09-16 15:16 | PN ---
Date/Time of Note Date/Time of Note DATE: 09/16/16 TIME: 15:14 Assessment/Plan VTE Prophylaxis VTE Prophylaxis Intervention: heparin Lines/Catheters IV Catheter Type (from Nrs): Peripheral IV Urinary Cath still in place: No Assessment/Plan Assessment/Plan 1. Vertigo, acute on chronic, meclizine 2. UTI, on rocephin 3. Hypothyroidism with TSH 10, increase synthroid DVT prophylaxis: heparin4. Subjective 24 Hr Interval Summary Free Text/Dictation much less dizziness, she is able to walk to bathroom Exam/Review of Systems Vital Signs Vitals Vital Signs Date Time Temp Pulse Resp B/P Pulse Ox O2 Delivery O2 Flow Rate FiO2 09/16/16 08:00 98.6 73 18 135/80 93 Room Air 09/14/16 18:07 2 Intake and Output 09/15/16 09/15/16 09/16/16 15:00 23:00 07:00 Intake Total 550 ml 665 ml 975 ml Output Total 850 ml 500 ml Balance 550 ml -185 ml 475 ml Exam Constitutional: alert, oriented, well developed Psych: nl mood/affect, no complaints Head: atraumatic, normocephalic Eyes: EOMI, nl conjunctiva, nl lids ENMT: nl external ears & nose, nl lips & teeth, nl nasal mucosa & septum Neck: non-tender, supple Respiratory: clear to auscultation, normal air movement, No congested cough, No crackles/rales, No diminished breath sounds, No intercostal retraction, No labored breathing, No other, No respirations, No tactile fremitus, No wheezing Cardiovascular: nl pulses, regular rate and rhythm, No S3, No S4, No bruits, No diastolic murmur, No edema, No gallop, No irregular rhythm, No jugular venous distention (JVD), No murmurs/extra sounds, No other, No rub, No systolic murmur Gastrointestinal: nl liver, spleen, non-tender, soft, No ascites, No bowel sounds, No distended, No firm, No hepatomegaly, No mass , No other, No rebound or guarding, No splenomegaly, No surgical scars, No tender Musculoskeletal: nl extremities to inspection Extremities: normal pulses, No calf tenderness, No clubbing, No cyanosis, No edema, No other, No palpable cord, No pitting pedal edema, No tenderness Neurological: CLIENT SERVICES MANAGER II-XII intact, nl mental status, nl speech, nl strength Skin: nl turgor Lymph: nl lymph nodes Results Result Diagram: 09/16/160 09/16/160 Results 24 hrs Laboratory Tests Test 09/16/16 04:40 09/16/16 13:40 Anion Gap 14 Basophils # 0.1 Basophils % 0.8 Blood Urea Nitrogen 12 Calcium Level 8.8 Carbon Dioxide Level 29 Chloride Level 105 Creatinine 0.62 Eosinophils # 0.6 H Eosinophils % 9.2 H Glucose Level 87 Hematocrit 34.5 L Hemoglobin 11.5 L Lymphocytes # 1.7 Lymphocytes % 28.0 Mean Corpuscular Hemoglobin 30.1 Mean Corpuscular Hemoglobin Concent 33.3 Mean Corpuscular Volume 90.3 Mean Platelet Volume 11.3 H Monocytes # 0.5 Monocytes % 8.7 Neutrophils # 3.2 Neutrophils % 53.1 Nucleated Red Blood Cells # 0.0 Nucleated Red Blood Cells % 0.0 Platelet Count 214 Potassium Level 3.8 Red Blood Count 3.82 L Red Cell Distribution Width 13.3 Sodium Level 144 White Blood Count 6.0 Erythrocyte Sedimentation Rate 48 H Medications Medications Current Medications Ondansetron HCl (Zofran Inj) 4 mg Q6H PRN IV NAUSEA AND/OR VOMITING; Start at 22:30 Acetaminophen (Tylenol Tab) 650 mg Q6H PRN PO PAIN LEVEL 1-3 OR FEVER; Start at 22:30 Acetaminophen/ Hydrocodone Bitart ([place] (5/325)) 1 tab Q6H PRN PO MODERATE PAIN LEVEL 4-6 Last administered on 09/15/16t 06:18; Admin Dose 1 TAB; Start at 22:30 Morphine Sulfate (morphine) 2 mg Q4H PRN IV SEVERE PAIN LEVEL 7-10; Start 09/14 at 22:30 Docusate Sodium (Colace) 100 mg Q12H PRN PO CONSTIPATION; Start 09/14/16 at 22: 30 Magnesium Hydroxide (Milk Of Mag) 30 ml DAILY PRN PO CONSTIPATION; Start at 22:30 Sodium Biphosphate/ Sodium Phosphate 133 ml 133 ml DAILY PRN [place] CONSTIPATION; Start 09/14/16 at 22:30 Sodium Chloride (1/2 NS) 1,000 ml @ 75 mls/hr [id number] IV Last administered on 09/16/16 06:20; Admin Dose 75 MLS/HR; Start 09/14/16 at 22:09 Lorazepam (Ativan) 0.5 mg Q6H PRN IV ANXIETY; Start 09/14/16 at 22:30 Hydralazine HCl (Apresoline) 10 mg Q6H PRN IV ELEVATED BLOOD PRESSURE; Start at 22:30 Clonidine (Catapres) 0.1 mg Q6H PRN PO ELEVATED BLOOD PRESSURE; Start 09/14/16 at 22:30 Nitroglycerin (Nitroglycerin (Sl Tab) 0.4 Mg) 1 tab Q5M PRN SL ANGINA; Start at 22:30 Folic Acid (Folic Acid) 1 mg DAILY PO Last administered on 09/16/16 08:37; Admin Dose 1 MG; Start 09/15/16 at 09:00 Meclizine HCl (Antivert) 25 mg TID PO Last administered on 09/16/16 13:13; Admin Dose 25 MG; Start 09/15/16 at 13:00 Heparin Sodium (Porcine) (Heparin (5000 Units/0.5 ml)) 5,000 unit BID SC Last administered on 09/16/16 09:27; Admin Dose 5,000 UNIT; Start 09/15/16 at 21:00 Pantoprazole (Protonix Tab) 40 mg DAILY@06 PO Last administered on 09/16/16 06 :19; Admin Dose 40 MG; Start 09/16/16 at 06:00 AARON ALY MD Sep 16, 2016 15:16
[2016-09-16 22:53] VITALS: BP 119/58; RESP 18
--- NOTE | 2016-09-16 23:07 | RADRPT ---
PROCEDURE: MRI Brain without contrast. CLINICAL INDICATION: Persistent vertigo. TECHNIQUE: An MRI of the brain was performed utilizing the following sequences: Sagittal and axial T1 weighted, axial T2 weighted, axial diffusion weighted with ADC mapping, coronal GRE, and axial F LAIR. COMPARISON: Brain CT 09/14/2016. FINDINGS: No diffusion weighted abnormalities are seen to suggest the presence of acute ischemia or recent inf arct. No hypointense signal abnormalities are seen on the GRE images to suggest the presence of blo od degradation products. There is no evidence of intracranial hemorrhage, mass effect, or midline s hift. No extra-axial fluid collections are seen. The ventricles and sulci are mildly enlarged indica tive of volume loss. There are mild to moderate small scattered foci of T2 FLAIR hyperintensity in the periventricular, d eep, and subcortical white matter, which are nonspecific in etiology but likely reflect chronic smal l vessel ischemic changes. There is prominent left paramedian retrocerebellar CSF space measuring 4.2 cm in AP diameter which m ay represent narayan cisterna magna versus arachnoid cyst. No abnormal intracranial vascular flow void is noted. The visualized paranasal sinuses demonstrate m ild mucosal thickening mainly in ethmoid air cell. There is thinning of left lens indicative of prio r lens replacement. IMPRESSION: 1. No acute intracranial hemorrhage, infarction or mass. 2. Mild to moderate chronic small vessel ischemic changes. 3. Prominent left paramedian retrocerebellar CSF space which may represent narayan cisterna magna vers us arachnoid cyst. 4. Mild generalized cerebral volume loss. RPTAT: HFN .Jeanie Peña MD, MD Date Time Electronically viewed and signed by .Jeanie Peña MD, MD on 09/16/2016 23:07 .N/
[2016-09-17 05:40] LABS: ADD SCAN DIFF NO
[2016-09-17 05:47] LABS: BASOPHILS % 0.7 % (0.0-2.0); EOSINOPHILS # 0.5 10^3/ul (0.0-0.5); HEMATOCRIT 35.7 % (37.0-47.0); HEMOGLOBIN 11.7 g/dl (12.0-16.0); LYMPHOCYTES # 1.6 10^3/ul (0.8-2.9); LYMPHOCYTES % 25.8 % (15.0-51.0); MEAN CORPUSCULAR HEMOGLOBIN 29.5 pg (29.0-33.0); MEAN CORPUSCULAR HGB CONC 32.8 g/dl (32.0-37.0); MEAN CORPUSCULAR VOLUME 90.2 fl (82.0-101.0); MEAN PLATELET VOLUME 11.3 fl (7.4-10.4); MONOCYTE # 0.5 10^3/ul (0.3-0.9); MONOCYTES % 8.5 % (0.0-11.0); NEUTROPHIL # 3.4 10^3/ul (1.6-7.5); NEUTROPHILS % 55.8 % (39.0-77.0); PLATELET COUNT 209 10^3/UL (140-415); RED BLOOD COUNT 3.96 10^6/ul (4.20-5.40); RED CELL DISTRIBUTION WIDTH 13.3 % (11.5-14.5)
[2016-09-17] MEDS: PANTOPRAZOLE (EC) 40 MG TAB PO SCH (05:53)
[2016-09-17 06:16] LABS: POTASSIUM 4.2 mmol/L (3.5-5.1)
[2016-09-17 06:18] LABS: CREATININE 0.61 mg/dl (0.44-1.00)
[2016-09-17 06:19] LABS: CALCIUM 8.7 mg/dl (8.4-10.2)
[2016-09-17 08:20] VITALS: BP 145/69; PULSE 85; RESP 18
[2016-09-17] MEDS: LEVOTHYROXINE 75 MCG TAB PO SCH (08:21)
[2016-09-17] MEDS: FOLIC ACID 1 MG TAB PO SCH (08:23)
[2016-09-17] MEDS: MECLIZINE 25 MG TAB PO SCH ×2 (08:23→12:51)
[2016-09-17] MEDS: HEPARIN 5,000 UNIT/0.5 ML SYG SC SCH (08:24)
--- NOTE | 2016-09-17 12:38 | CONS ---
Date/Time of Note Date/Time of Note DATE: 09/17/16 TIME: 12:36 Consult Date/Type/Reason Admit Date/Time Sep 16, 2016 at 14:40 Initial Consult Date 09/15/16 Type of Consultation: Neurology Ordering Provider: JAYNE KERN Subjective dizziness improved MRI showed no evidence of acute injury Objective Vital Signs Date Time Temp Pulse Resp B/P Pulse Ox O2 Delivery O2 Flow Rate FiO2 09/17/16 08:20 97.8 85 18 145/69 93 Room Air 09/14/16 18:07 2 Intake and Output 09/16/16 09/16/16 09/17/16 15:00 23:00 07:00 Intake Total 1800 ml 860 ml Output Total 1500 ml 700 ml Balance 300 ml 160 ml Exam awake alert appears stated age oriented to self hospital naur[place] speaking no aphasia follows commands CN: JB, no nystagmus, blinks to threat no facial asymmetry palate upgoing uvula midline scm/trap intact tongue midline Motor: no drift in arms or legs strength is full throughout although she gives poor effrt Coordination no ataxia Reflexes symmetric throughout gait unable to test Results/Medications Result Diagram: 09/17/16 0445 09/17/16 0445 Results 24 hrs Laboratory Tests Test 09/16/16 13:40 09/17/16 04:45 Erythrocyte Sedimentation Rate 48 H White Blood Count 6.0 Red Blood Count 3.96 L Hemoglobin 11.7 L Hematocrit 35.7 L Mean Corpuscular Volume 90.2 Mean Corpuscular Hemoglobin 29.5 Mean Corpuscular Hemoglobin Concent 32.8 Red Cell Distribution Width 13.3 Platelet Count 209 Mean Platelet Volume 11.3 H Neutrophils % 55.8 Lymphocytes % 25.8 Monocytes % 8.5 Eosinophils % 9.0 H Basophils % 0.7 Nucleated Red Blood Cells % 0.0 Neutrophils # 3.4 Lymphocytes # 1.6 Monocytes # 0.5 Eosinophils # 0.5 Basophils # 0.0 Nucleated Red Blood Cells # 0.0 Sodium Level 143 Potassium Level 4.2 Chloride Level 105 Carbon Dioxide Level 27 Anion Gap 15 Blood Urea Nitrogen 12 Creatinine 0.61 Glucose Level 88 Calcium Level 8.7 Medications Current Medications Ondansetron HCl (Zofran Inj) 4 mg Q6H PRN IV NAUSEA AND/OR VOMITING; Start at 22:30 Acetaminophen (Tylenol Tab) 650 mg Q6H PRN PO PAIN LEVEL 1-3 OR FEVER; Start at 22:30 Acetaminophen/ Hydrocodone Bitart ([place] (5/325)) 1 tab Q6H PRN PO MODERATE PAIN LEVEL 4-6 Last administered on 09/15/16 06:18; Admin Dose 1 TAB; Start at 22:30 Morphine Sulfate (morphine) 2 mg Q4H PRN IV SEVERE PAIN LEVEL 7-10; Start 09/14 at 22:30 Docusate Sodium (Colace) 100 mg Q12H PRN PO CONSTIPATION; Start 09/14/16 at 22: 30 Magnesium Hydroxide (Milk Of Mag) 30 ml DAILY PRN PO CONSTIPATION; Start at 22:30 Sodium Biphosphate/ Sodium Phosphate 133 ml 133 ml DAILY PRN [place] CONSTIPATION; Start 09/14/16 at 22:30 Sodium Chloride (1/2 NS) 1,000 ml @ 75 mls/hr [id number] IV Last administered on 09/16/16 20:35; Admin Dose 75 MLS/HR; Start 09/14/16 at 22:09 Lorazepam (Ativan) 0.5 mg Q6H PRN IV ANXIETY Last administered on 09/16/16 21: 52; Admin Dose 0.5 MG; Start 09/14/16 at 22:30 Hydralazine HCl (Apresoline) 10 mg Q6H PRN IV ELEVATED BLOOD PRESSURE; Start at 22:30 Clonidine (Catapres) 0.1 mg Q6H PRN PO ELEVATED BLOOD PRESSURE; Start 09/14/16 at 22:30 Nitroglycerin (Nitroglycerin (Sl Tab) 0.4 Mg) 1 tab Q5M PRN SL ANGINA; Start at 22:30 Folic Acid (Folic Acid) 1 mg DAILY PO Last administered on 09/17/16 08:23; Admin Dose 1 MG; Start 09/15/16 at 09:00 Meclizine HCl (Antivert) 25 mg TID PO Last administered on 09/17/16 08:23; Admin Dose 25 MG; Start 09/15/16 at 13:00 Heparin Sodium (Porcine) (Heparin (5000 Units/0.5 ml)) 5,000 unit BID SC Last administered on 09/17/16 08:24; Admin Dose 5,000 UNIT; Start 09/15/16 at 21:00 Pantoprazole (Protonix Tab) 40 mg DAILY@06 PO Last administered on 09/17/16 05 :53; Admin Dose 40 MG; Start 09/16/16 at 06:00 Assessment/Plan Chief Complaint/Hosp Course 75 year old female with history of vertigo presenting with headaches and worsening symptoms being treated for UTI. -MRI shows atrophy, chronic changes, nothing acute continue on Meclizine 25 mg TID , IVF -prn NSAIDS for headaches -PT eval, discharge planning Problems: LOUIE MARROQUIN MD Sep 17, 2016 12:38
[2016-09-17] MEDS: SOD CHLORIDE 0.45% 1,000 ML IV SCH (12:53)
--- NOTE | 2016-09-17 14:30 | PDOCDIS ---
Discharge Instructions DIAGNOSIS Discharge Diagnosis: Vertigo CONDITION Patient Condition: Stable HOME CARE INSTRUCTIONS: Special Diet: REG FOLLOW UP/APPOINTMENTS Appointments John Roy MD Specialty: Internal Medicine Office Address: [address] [place], [place] [id number] Office OTHER ORDERS: Other Orders: 1. Take a regular diet as tolerated. 2. Resume home medications 3. Resume activities as tolerated. 4. Follow-up with your primary care physician in 2 weeks. If you do not have a primary care physician, please call Dr. John Roy's office. GUY FUNK NP Sep 17, 2016 14:30
[2016-09-17] MEDS ORDERED: AMO500 PO (14:32)
[2016-09-17] MEDS ORDERED: MECL-77 PO (14:32)
--- NOTE | 2016-09-17 17:07 | DS ---
DATE OF ADMISSION: 09/16/2016 DATE OF DISCHARGE: 09/17/2016 FINAL DIAGNOSES: 1. Vertigo, acute on chronic. Status post evaluation by neurology. Brain MRI and brain CT scan negative for any acute findings. 2. Urinary tract infection. 3. Essential hypertension. 4. Hypothyroidism. 5. Diastolic dysfunction. 6. Mild pulmonary hypertension. CONSULTATIONS: LOUIE MARROQUIN MD, neurology. HOSPITAL COURSE: This is a 75-year-old female with past medical history of arthritis, hypothyroidism, as well as hypertension and vertigo, who came to the emergency room with a chief complaint of worsening vertigo. The patient also had associated headaches. The patient denied any focal weakness. Provided the patient's history of present illness and her comorbidities, a clinical decision was made to admit the patient to inpatient setting to have her further evaluated. The patient was admitted to inpatient setting. A neurology consult was obtained on this patient. The patient's home medications were resumed. The patient's symptomatology was extensively evaluated. The patient's brain CT scan was negative for any acute intracranial pathology. The patient subsequently underwent a brain MRI that showed no acute intracranial hemorrhage , infarction or mass. 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 Neurology recommended to continue the patient on meclizine. The patient was seen and evaluated by physical therapy. Physical therapy recommended no further physical therapy needs. The patient was cleared by neurology to be discharged home. The patient was also noticed to have urinary tract infection. The patient was maintained on antibiotics. The patient has no evidence of any septic shock. The patient has underlying hypothyroidism. The patient's TSH was found to be more than 10. Hence, the patient's Synthroid dosing was increased. The patient also has underlying essential hypertension. The patient was maintained on antihypertensives. The patient had fairly well controlled blood pressures throughout her hospital course. The patient's 2D echocardiogram showed ejection fraction of 60% with stage I diastolic dysfunction. The patient was also noticed to have a PA systolic pressure of 40 mmHg. The echocardiogram also revealed mild mitral valve regurgitation and mild tricuspid regurgitation. The patient had a stable hospital course. The patient was cleared by neurology to be discharged home. DISPOSITION AND DISCHARGE PLAN: The patient will be discharged home today. The patient will take a regular diet as tolerated. The patient was instructed to resume her home medications. The patient was instructed to resume activities as tolerated. The patient was instructed to follow up with her primary care physician in 2 weeks and if she does not have a primary care physician to please call Dr. John Roy's office. The patient's family verbalized understanding of the discharge instructions. CONDITION AT DISCHARGE: Stable. DISCHARGE MEDICATIONS: 1. Amoxicillin 500 mg p.o. q.8 hours x7 days. 2. Nedrow 5/325 one tablet p.o. q.6h. p.r.n. pain. 3. Synthroid 100 mcg p.o. before bed. 4. Meclizine 25 mg p.o. t.i.d. 5. Captopril 100 mg p.o. b.i.d. 6. Folic acid 1 mg p.o. daily. 7. Methotrexate 2.5 mg p.o. daily. PERTINENT LABORATORY AND DIAGNOSTIC DATA: 1. 2D echocardiogram. Ejection fraction of 60%. Stage I diastolic dysfunction. Mild mitral valve regurgitation. Mild tricuspid regurgitation. Estimated peak PA systolic pressure of 40 mmHg. 2. Chest x-ray. No evidence of acute intrathoracic pathology. 3. Brain CT scan: No evidence of acute intracranial pathology. Stable cerebral volume loss. Mild periventricular white matter hypodensities, nonspecific but likely reflect chronic microvascular ischemic changes. 4. Brain MRI: No acute intracranial hemorrhage, infarction or mass. Mild to moderate chronic small vessel ischemic changes. 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 Mild generalized cerebral volume loss. 5. Latest CBC: WBC 6.0, hemoglobin 11.7, hematocrit 37.7, platelet count 209. 6. Latest BMP: Sodium 140, potassium 4.2, chloride 105, carbon dioxide 27, anion gap 15, BUN 12, creatinine 0.61, glucose 80, calcium 8.7. 7. Hemoglobin A1c 5.2. 8. Thyroid panel: TSH of 10.5, free T4 of 1.10. 9. Fasting lipid profile: Triglycerides 99, total cholesterol 141, LDL 68, HDL 53. At this time, I would like to thank Dr. Marroquin for seeing the patient and providing clinical recommendations. The case and management of this patient was fully discussed with Dr. Xavier. Approximately 35 minutes was spent on coordinating the discharge on this patient. GUY XAVIER MD, AM/GWENDOLYN Conf#: [id number] DID#: [id number] MTDD
== END 2016-09-17 18:05 | disposition home or self-care (01) | DRG 149 ==
LOC: E/R 13:14 → PP2 21:00 → OBSVTOIN 09-16 14:40
PROVIDERS: ADMIT Hospitalist; ATTEND Hospitalist
DX: R42 Dizziness and giddiness (principal); N39.0 Urinary tract infection, site not specified; F03.90 Unspecified dementia, unspecified severity, without behavioral disturbance, psychotic disturbance, mood disturbance, and anxiety; R51 Headache; R27.0 Ataxia, unspecified; E03.9 Hypothyroidism, unspecified; R63.4 Abnormal weight loss; Z68.28 Body mass index [BMI] 28.0-28.9, adult
CPT/HCPCS: 36415; 70450; 70551; 71010; 80048; 80053; 80061; 81001; 81003; 82105; 82378; 82550; 82553; 83036; 83735; 84100; 84439; 84443; 84484; 85025; 85610; 85651; 85730; 86301; 86304; 87086; 92610; 93005; 93306; 96374; 96375; 99217; G0378; C9113; J0696; J1644; J2060; J2405; J3360; J7030

== ENCOUNTER 2017-03-01 22:00 | Emergency (ER) | payer MEDICARE, OTHER ==
[~2017-03-01] VITALS: Ht 152.4 cm; Wt 70.0 kg
[~2017-03-01 22:00] MED LIST changes: -ACET500C5 PO; +AMO500 PO; +HYDR-3498 PO; -IBUP-1542 PO; -LEVO75TA5 PO; +MECL-77 PO; -MECL25TA2 PO; -PRED20TA PO; +SYN75 PO; -TRAM50TA2 PO
[2017-03-01 22:17] VITALS: Ht 152.4 cm; Wt 70.0 kg
[2017-03-01] MEDS ORDERED: LORAZEPAM 1 MG TAB PO ONE (22:30)
[2017-03-01] MEDS ORDERED: LORA-441 PO (23:49)
--- NOTE | 2017-03-01 23:59 | ERD ---
ER Documentation Chief Complaint Date/Time DATE: 03/01/17 TIME: 23:51 Chief Complaint 'dizziness' this evening after a fight with family, h/o anxiety attacks HPI This is a very pleasant 76-year-old female comes of anxiety after she got an argument with her family. Denies any chest pain nausea vomiting fevers or chills. Denies any diaphoresis. Patient has history of anxiety in the past. Denies any other current complaints. Denies feeling of impending doom ROS All systems reviewed and are negative except as per history of present illness. Medications Home Meds Active Scripts Lorazepam* (Ativan*) 0.5 Mg Tablet, 0.5 MG PO Q8, #10 TAB Prov:REYMUNDO HERNANDEZ 03/01/17 Amoxicillin* (Amoxicillin*) 500 Mg Cap, 500 MG PO Q8 for 7 Days, #21 CAP Prov:GUY FUNK NP 09/17/16 Meclizine Hcl* (Meclizine Hcl*) 25 Mg Tablet, 25 MG PO TID for 15 Days, TAB Prov:GUY FUNK NP 09/17/16 Levothyroxine Sodium* (Synthroid*) 75 Mcg Tablet, 100 MCG PO AC BREAKFAST for 30 Days, TAB Prov:AARON ALY MD 09/16/16 Hydrocodone Bit-Acetaminophen (Hydrocodone Bit-APAP) 5-325MG Tablet, 1 TAB PO Q6H Y for MODERATE PAIN LEVEL 4-6, #20 TAB Prov:AARON ALY MD 09/16/16 Reported Medications Captopril* (Captopril*) 100 Mg Tablet, 100 MG PO BID, TAB 03/22/15 Methotrexate Sodium (Methotrexate) 2.5 Mg Tablet, MG PO DAILY (20MG)-8 TABS PER WEEK 03/19/12 Folic Acid* (Folic Acid*) 1 Mg Tablet, 1 MG PO DAILY 03/19/12 Allergies Allergies: Coded Allergies: No Known Allergy (Unverified , 09/14/16) PMhx/Soc History of Surgery: Yes (Hip surgery, L eye surgery, c section) Anesthesia Reaction: No Hx Neurological Disorder: No Hx Respiratory Disorders: No Hx Cardiac Disorders: Yes (HTN) Hx Psychiatric Problems: No Hx Miscellaneous Medical Probl: Yes (Alzheimer's,vertigo,arthritis, hypothyrodism) Hx Alcohol Use: No Hx Substance Use: No Hx Tobacco Use: No Smoking Status: Unknown if ever smoked Physical Exam Vitals Vital Signs Date Time Temp Pulse Resp B/P Pulse Ox O2 Delivery O2 Flow Rate FiO2 03/01/17 22:17 98.4 82 18 134/62 100 Physical Exam Const: [] Head: Atraumatic Eyes: Normal Conjunctiva ENT: Normal External Ears, Nose and Mouth. Neck: Full range of motion..~ No meningismus. Resp: Clear to auscultation bilaterally Cardio: Regular rate and rhythm, no murmurs Abd: Soft, non tender, non distended. Normal bowel sounds Skin: No petechiae or rashes Back: No midline or flank tenderness Ext: No cyanosis, or edema Neur: Awake and alert Psych: Normal Mood and Affect Results 24 hrs Current Medications Medications (Trade) Dose Ordered Sig/Abby Route PRN Reason Start Time Stop Time Status Last Admin Dose Admin Lorazepam (Ativan) 1 mg ONCE ONCE PO 03/01/17 22:30 03/01/17 22:31 DC 03/01/17 22:48 Procedures/MDM this is a pleasant 76 yo female with an axiety attack. clinically stable at this point with resolution of anxiety with PO ativan. Patient will be discharged home and told to return for return for return of sx. Departure Diagnosis: Primary Impression: Anxiety Condition: Stable Patient Instructions: Anxiety Reaction REYMUNDO HERNANDEZ Mar 01, 2017 23:59
[2017-03-02 00:10] VITALS: BP 128/62; PULSE 81; RESP 18; TEMP 98.4
== END 2017-03-02 00:10 | disposition home or self-care (01) ==
LOC: E/R 22:00
DX: F41.9 Anxiety disorder, unspecified (principal); I10 Essential (primary) hypertension; G30.9 Alzheimer's disease, unspecified; E03.9 Hypothyroidism, unspecified
CPT/HCPCS: 93005

== ENCOUNTER 2017-10-03 12:58 | Emergency (ER) | END 2017-10-03 17:57 | disposition home or self-care (01) ==